=== PATIENT | male | born 1990 | race Two or more races ===

== ENCOUNTER 2017-10-30 22:12 | Emergency (ER) | payer SELFPAY ==
[~2017-10-30] VITALS: Ht 172.7 cm; Wt 117.9 kg
[~2017-10-30 22:12] MED LIST: NKM
[2017-10-30 22:13] VITALS: BP 124/81
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
[2017-10-30 23:02] VITALS: BP 124/81
[2017-10-31 00:23] VITALS: BP 124/81
== END 2017-10-30 23:02 | disposition left against medical advice (07) ==
LOC: EDBD 22:12 → EMR 22:29
DX: S01.81XA Laceration without foreign body of other part of head, initial encounter (principal); Y04.0XXA Assault by unarmed brawl or fight, initial encounter; Y93.89 Activity, other specified; Y92.9 Unspecified place or not applicable
CPT/HCPCS: 99283